=== PATIENT | female | born 1965 | race Caucasian/White ===

== ENCOUNTER 2017-03-27 03:27 | Emergency (ER) | payer BC ==
[2017-03-27 03:30] VITALS: BP 138/87
[2017-03-27] MEDS ORDERED: Tetracaine 0.5% 2 ML Bottle EYELF STA (03:43)
--- NOTE | 2017-03-27 03:52 | EDM.PDOC ---
[id number] eye irritation Time Seen by Provider: 03/27/17 03:35 Source of Information: Reports: Patient History Limitations: Reports: No Limitations - History of Present Illness INITIAL COMMENTS - FREE TEXT/NARRATIVE: [place] into her eye. She has tried flushing it and it has been tearing but she has pressure in it and it is very painful. Has tried OTC pain meds without improvement. No change in vision noted. Onset: Sudden Duration: Getting Worse Location: Reports: Other (left eye) Quality: Reports: Pressure Left Eye Pain Score (Numeric/FACES): 5 - Related Data Allergies Allergy/AdvReac Type Severity Reaction Status Date / Time Penicillins Allergy Other Verified 03/27/17 03:31 Sulfa (Sulfonamide Allergy Swollen Verified 03/27/17 03:31 Antibiotics) Tongue Home Meds: Home Meds Cetirizine HCl [Zyrtec] 10 mg PO DAILY 03/27/17 [History] Levothyroxine Sodium [Synthroid] 125 mcg PO DAILY 03/27/17 [History] Montelukast [Singulair] 10 mg PO DAILY 03/27/17 [History] Simvastatin [Zocor] 10 mg PO DAILY 03/27/17 [History] Past Medical History HEENT History: Reports: Allergic Rhinitis Cardiovascular History: Reports: High Cholesterol 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: Musculoskeletal History: Reports: Neck Pain, Chronic Other Musculoskeletal History: tension headaches Endocrine/Metabolic History: Reports: Hypothyroidism - Past Surgical History Female Surgical History: Reports: Section Social & Family History - Tobacco Use Smoking Status *Q: Former Smoker Used Tobacco, but Quit: Yes Month Tobacco Last Used[age] 1.5 y.o - Caffeine Use Caffeine Use: Reports: Coffee - Recreational Drug Use Recreational Drug Use: No ED ROS GENERAL - Review of Systems Review Of Systems: See Below Constitutional: Reports: No Symptoms HEENT: Reports: Eye Pain Respiratory: Reports: No Symptoms Cardiovascular: Reports: No Symptoms ED EXAM GENERAL W FULL EYE - Physical Exam Exam: See Below Exam Limited By: No Limitations General Appearance: Alert, Moderate Distress Eye Exam: Left Eye: Foreign Body Conjunctiva & Sclera: Right: Normal Appearance, Left: Foreign Body, Injected Cornea Exam: Left: Corneal Abrasion (at the 2 oclock position) Extraocular Movements: Bilateral: Intact Pupillary Size: Bilateral: 3 mm Pupillary Reaction: Bilateral: Brisk Ears: Normal External Exam Throat/Mouth: Normal Inspection, Normal Oropharynx Head: Atraumatic, Normocephalic ED EYE w/ Add Procedure - Eye Procedure Alcaine Drops Administered: Yes (Fluorescien instilled) Eye FB Removal: Removal w/ Cotton Swab Cyclogel 2 Drops Administered: Left Eye Course - Vital Signs Last Recorded V/S: Last Vital Signs Temp 96.3 F 03/27/17 03:28 Pulse 77 03/27/17 03:28 Resp 18 03/27/17 03:28 BP 138/87 03/27/17 03:28 Pulse Ox 97 03/27/17 03:28 - Orders/Labs/Meds Meds: Medications Discontinued Medications Generic Name Dose Route Start Last Admin Trade Name Freq PRN Reason Stop Dose Admin Tetracaine 1 ml 03/27/17 03:43 03/27/17 03:47 Pontocaine 0.5% Ophth Drops EYELF 03/27/17 03:44 2 drop NOW STA Administration - Re-Assessments/Exams Free Text/Narrative Re-Assessment/Exam: 03/27/17 03:40 After numbing the eye I was then able to examine it with the blue light and small FB was able to be removed easily from under the upper eye lid. Departure - Departure Time of Disposition: 03:48 Disposition: Home, Self-Care 01 Condition: Good Clinical Impression: Corneal abrasion Qualifiers: Encounter type: initial encounter Laterality: left Qualified Code(s): S05.02XA - Injury of conjunctiva and corneal abrasion without foreign body, left eye, initial encounter Foreign body, eye Qualifiers: Encounter type: initial encounter Laterality: left Qualified Code(s): T15.92XA - Foreign body on external eye, part unspecified, left eye, initial encounter - Discharge Information Referrals: PCP,None [Primary Care Provider] - Forms: ED Department Discharge Additional Instructions: your eye will be numb for the next 3-4 hours. Be very careful that nothing gets into your eye. If it still feels like something is in your eye in the AM then call eye DrBryce as it will need to be looked at under microscope. Do not wear contacts for 24 hours. - Problem List & Annotations (1) Corneal abrasion SNOMED Code(s): 24034108 Code(s): S05.00XA - INJ CONJUNCTIVA AND CORNEAL ABRASION W/O FB, UNSP EYE, INIT Status: Acute Priority: High Qualifiers: Encounter type: initial encounter Laterality: left Qualified Code(s): S05.02XA - Injury of conjunctiva and corneal abrasion without foreign body, left eye, initial encounter (2) Foreign body, eye SNOMED Code(s): 60642909 Code(s): T15.90XA - FOREIGN BODY ON EXTERNAL EYE, PART UNSP, UNSP EYE, INIT Status: Acute Priority: High Qualifiers: Encounter type: initial encounter Laterality: left Qualified Code(s): T15.92XA - Foreign body on external eye, part unspecified, left eye, initial encounter - Problem List Review Problem List Initiated/Reviewed/Updated: Yes
== END 2017-03-27 04:00 | disposition home or self-care (01) ==
LOC: SUPCPDRO 03:27 → CC.ED 03:27
DX: T15.02XA Foreign body in cornea, left eye, initial encounter (principal); Z88.0 Allergy status to penicillin; Z88.2 Allergy status to sulfonamides; Z79.899 Other long term (current) drug therapy; E78.00 Pure hypercholesterolemia, unspecified; E03.9 Hypothyroidism, unspecified; Z87.891 Personal history of nicotine dependence; Z98.890 Other specified postprocedural states
CPT/HCPCS: 99283